=== PATIENT | female | born 1975 | race Caucasian/White ===

== ENCOUNTER 2018-01-10 11:22 | Emergency (ER) | payer OTHER ==
[~2018-01-10] VITALS: Ht 154.9 cm; Wt 73.4 kg
[~2018-01-10 11:22] MED LIST: ARMO150T4 PO; SUCR1TAB PO
[2018-01-10] MEDS ORDERED: KETOROLAC 30 MG/1 ML IM ONE (12:00)
[2018-01-10] MEDS ORDERED: KETOROLAC 30 MG/1 ML ONE (12:29)
[2018-01-10 13:16] VITALS: BP 117/78
== END 2018-01-10 13:55 | disposition home or self-care (01) ==
LOC: ED 13:52
DX: S23.3XXA Sprain of ligaments of thoracic spine, initial encounter (principal); F41.1 Generalized anxiety disorder; Z88.0 Allergy status to penicillin; V49.49XA Driver injured in collision with other motor vehicles in traffic accident, initial encounter; Y93.89 Activity, other specified; Y99.8 Other external cause status; Y92.410 Unspecified street and highway as the place of occurrence of the external cause
CPT/HCPCS: 72072; 93005; 96372; 99284; J1885

== ENCOUNTER 2018-04-29 14:05 | Emergency (ER) | payer OTHER ==
[~2018-04-29] VITALS: Ht 157.5 cm; Wt 74.5 kg
[2018-04-29 14:17] VITALS: BP 114/68
[2018-04-29] MEDS ORDERED: ALBUTEROL/IPRATROPIUM 2.5MG/0.5MG, 3 ML NPPB ONE (14:30)
[2018-04-29] MEDS ORDERED: ALBUTEROL/IPRATROPIUM 2.5MG/0.5MG, 3 ML ONE (14:37)
== END 2018-04-29 15:30 | disposition home or self-care (01) ==
LOC: ED 15:14
DX: J20.8 Acute bronchitis due to other specified organisms (principal); F41.1 Generalized anxiety disorder; Z87.891 Personal history of nicotine dependence
CPT/HCPCS: 71046; 94640; 99283; J7512; J7620

== ENCOUNTER 2018-06-24 09:07 | Emergency (ER) | payer SELFPAY ==
[~2018-06-24] VITALS: Ht 156.2 cm; Wt 75.0 kg
[2018-06-24] MEDS ORDERED: ALBUTEROL/IPRATROPIUM 2.5MG/0.5MG, 3 ML NPPB ONE (09:30)
[2018-06-24] MEDS ORDERED: BUDESONIDE 0.5 MG/2 ML INHA ONE (09:34)
[2018-06-24] MEDS ORDERED: ALBUTEROL/IPRATROPIUM 2.5MG/0.5MG, 3 ML ONE (09:34)
--- NOTE | 2018-06-24 10:00 | NUR ---
REPORT RECEIVED FROM PAU VAUGHN. ASSUMED CARE OF PT. THIS IS A 42 YO FEMALE C/O EXACERBATION OF CHRONIC BRONCHITIS INTERMITTENTLY SINCE DECEMBER. PT ABLE TO SPEAK IN FULL 7-10 WORD SENTENCES. RESP EVEN AND UNLABORED. PT AO X 4. SKIN PWD. RESP EVEN AND EQAUL. RT HAS BEEN TO ROOM FOR BREATHING TRX. PT DENIES OTHER NEEDS AT THIS TIME. CALL LIGHT WITHIN REACH. WILL COTN TO MONITOR PT.
[2018-06-24 11:04] VITALS: BP 117/83
== END 2018-06-24 11:06 | disposition home or self-care (01) ==
LOC: ED 09:33
DX: J98.01 Acute bronchospasm (principal); J06.9 Acute upper respiratory infection, unspecified
CPT/HCPCS: 71046; 94640; 99283; J7620

== ENCOUNTER 2018-07-13 21:13 | Emergency (ER) | payer SELFPAY ==
[~2018-07-13] VITALS: Ht 157.5 cm; Wt 75.9 kg
[2018-07-13 21:16] VITALS: BP 125/87
[2018-07-13] MEDS ORDERED: ALBUTEROL/IPRATROPIUM 2.5MG/0.5MG, 3 ML ONE (21:36)
--- NOTE | 2018-07-13 21:38 | NUR ---
PT HERE FOR RESP SYMPTOMS THAT PT SUSPECTS TO BE HER CHRONIC BRONCHITIS. PT RECENTLY RAN OUT OF ASTHMA MEDICATIONS. PT DENIES SOB WITH WALKING BUT FEELS LIKE HER WOB HAS INCREASED. PT CONNECTED TO MONITORS AND CALL LIGHT IN REACH.
[2018-07-13] MEDS ORDERED: ALBUTEROL/IPRATROPIUM 2.5MG/0.5MG, 3 ML NPPB ONE (22:00)
--- NOTE | 2018-07-13 22:11 | NUR ---
PT MEDICATED PER EMAR.
--- NOTE | 2018-07-13 22:24 | NUR ---
Patient/Caregiver given discharge instructions and they have confirmed that they understand the instructions. Patient ambulatory with steady gait.
[2018-07-13] MEDS ORDERED: ALBUTEROL/IPRATROPIUM 2.5MG/0.5MG, 3 ML NPPB PRN (22:30)
[2018-07-13] MEDS ORDERED: ALBUTEROL SULFATE 2.5 MG/3 ML ONE (22:30)
[2018-07-13] MEDS ORDERED: ALBUTEROL SULFATE 2.5 MG/3 ML NPPB PRN (23:00)
== END 2018-07-13 22:45 | disposition home or self-care (01) ==
LOC: ED 22:05
DX: R06.00 Dyspnea, unspecified (principal); F41.1 Generalized anxiety disorder; Z87.891 Personal history of nicotine dependence
CPT/HCPCS: 71046; 93005; 94640; 99283; J7512; J7620

== ENCOUNTER 2019-05-12 12:50 | Emergency (ER) | payer SELFPAY ==
[~2019-05-12] VITALS: Ht 154.9 cm; Wt 71.1 kg
[2019-05-12 12:52] VITALS: BP 113/77
--- NOTE | 2019-05-12 13:28 | NUR ---
PT HERE WITH C/O CHRONIC BRONCHITIS. PT STATES SHE HAS BEEN HERE PREVIOSULY BEFORE BUT NOW SHE THINKS SHE HAS THE FLU ON TOP OF IT.
--- NOTE | 2019-05-12 13:31 | NUR ---
PT MEDICATED PER ORDERS.
[2019-05-12 14:05] LABS: RAPID INFLUENZA A POSITIVE (Negative); RAPID INFLUENZA B Negative (Negative)
--- NOTE | 2019-05-12 14:15 | NUR ---
Patient/Caregiver given discharge instructions and they have confirmed that they understand the instructions. Patient ambulatory with steady gait.
== END 2019-05-12 14:26 | disposition home or self-care (01) ==
LOC: ED 14:25
DX: J11.1 Influenza due to unidentified influenza virus with other respiratory manifestations (principal); R07.89 Other chest pain; M79.10 Myalgia, unspecified site
CPT/HCPCS: 71046; 87400; 93005; 99285; J7512